=== PATIENT | female | born 1950 | race Caucasian/White ===

== ENCOUNTER 2023-06-26 22:27 | Emergency (ER) | payer MEDICARE, OTHER ==
[~2023-06-26] VITALS: Ht 152.4 cm; Wt 79.4 kg
== END 2023-06-27 00:25 | disposition home or self-care (01) ==
LOC: ED 22:27
DX: T78.49XA Other allergy, initial encounter (principal); R21 Rash and other nonspecific skin eruption; X58.XXXA Exposure to other specified factors, initial encounter; L53.9 Erythematous condition, unspecified